=== PATIENT | female | born 1990 | race Caucasian/White ===

== ENCOUNTER 2022-12-16 22:28 | Emergency (ER) | payer BC, SELFPAY ==
[2022-12-16 22:29] VITALS: BP 133/85; PULSE 87; RESP 16; TEMP 36.4; O2SAT 100; BMI 21.0
--- NOTE | 2022-12-16 22:34 | ECG_ITS ---
Test Reason : Panic attack Blood Pressure : / mmHG Vent. Rate : 081 BPM Atrial Rate : 081 BPM P-R Int : 168 ms QRS Dur : 076 ms QT Int : 354 ms P-R-T Axes : 042 054 022 degrees QTc Int : 411 ms Normal sinus rhythm Normal ECG No previous ECGs available Referred By: Generic ED Physician Electronically Signed By:Arvin Rodriguez
[2022-12-16 23:24] LABS: Anion Gap 12 (12-20); Blood Urea Nitrogen 15 mg/dL (9-16); Calcium 9.5 mg/dL (8.4-10.2); Carbon Dioxide 26 mmol/L (22-29); Chloride 107 mmol/L (96-108); Creatinine Clr Calc Pharmacy 111.9; Estimated Glomerular Filt Rate > 60; Glucose Random 98 mg/dL (60-115); Potassium 3.7 mmol/L (3.3-5.1); Sodium 141 mmol/L (135-145)
[2022-12-16 23:33] LABS: Troponin-I High Sensitivity < 2.7 ng/L (<3.5-17.0)
--- NOTE | 2022-12-17 01:17 | ED.GENADULT ---
HPI - General Adult General Chief complaint: General Medical Stated complaint: panic attack Time Seen by Provider: 12/17/22 01:01 Source: patient, RN notes reviewed and other (Patient's boyfriend) Mode of arrival: ambulatory Limitations: no limitations History of Present Illness HPI narrative: 32-year-old female presents for evaluation of anxiety. Patient reports that when she arrived to the ER she was having ?a panic attack. ? She states that she had some chest tightness Patient reports that she just finished her studies in [employer] science and received her PhD She states that because she is no longer a student her views is expiring unless she gets a job She states that she applied for a job and is waiting up to 10 more days to find out if she got a job or not Patient is concerned that if she does not get the job she may be departed as her visa will The patient has tried ZzzQuil and melatonin without any improvement in her insomnia She denies any medical history Related Data Previous Rx's Medication Instructions Recorded lorazepam 1 mg tablet (Ativan) 1 mg PO BEDTIME PRN insomnia #14 12/17/22 tabs Allergies Allergy/AdvReac Type Severity Reaction Status Date / Time No Known Allergies Allergy Verified 12/17/22 01:29 Review of Systems Cardiovascular: Cardiovascular: Reports chest pain Psychiatric: Psychiatric: Reports anxiety PMFSH Social History Social History Alcohol intake: never Smoked in Last 30 Days: No Use of substances other than those prescribed or required for medical reasons: No Patient : No Physical Exam ED Vital Signs: Vital Signs - 24 hr 12/16/22 22:29 Temperature 97.6 F Pulse Rate 87 Respiratory Rate 16 Blood Pressure 133/85 Pulse Oximetry 100 Oxygen Delivery Method Room Air BMI result Body Mass Index 21.0 Const General: healthy appearing, comfortable, no acute distress, alert and awake Nutritional Appearance: well nourished Orientation/consciousness: patient oriented x3 HENMT Head: Yes normocephalic and Yes atraumatic Eyes Eyelids: Yes eyelids normal Conjunctivae: conjunctivae normal Sclerae: sclerae normal Corneas: corneas normal Pupils: Equal, round and reactive pupils present EOM: EOMs intact bilaterally Neck Neck: Yes full ROM Resp Effort & Inspection: normal respiratory effort, able to speak in complete sentences and not labored Cardio Rate: regular rate Rhythm: regular rhythm Neuro General: patient oriented x3 Cranial nerves: Yes Equal, round and reactive pupils present and Yes Bilaterally intact EOM present Cognition (Neuro): normal cognition Extrem Other: Moving all extremities well without any obvious deformities Medical Decision Making Medical Decision Making [facility] Narrative: 32-year-old female who denies any past medical history presents for evaluation of insomnia and anxiety. The patient is in the middle of intimacy stressful. She had a negative cardiac workup including EKG and troponin. Her symptoms are most likely attributed to anxiety. I discussed her previous treatments for insomnia and I offered to prescribe the patient 2 weeks worth of Ativan for bedtime only. The patient's boyfriend reports that he is driving the patient does to have her license, so therefore does not drive at all. Differential Diagnosis Insomnia Anxiety Stress Depression Lab Data [facility] Lab Attestation statement: I reviewed the patient's lab results. (Electrolytes within normal limits. Troponin undetectable) 12/16/22 23:06 Labs: Lab Results 12/16/22 12/16/22 Range/Units 23:06 23:06 Sodium 141 (135-145) mmol/L Potassium 3.7 (3.3-5.1) mmol/L Chloride 107 (96-108) mmol/L Carbon Dioxide 26 (22-29) mmol/L Anion Gap 12 (12-20) BUN 15 (9-16) mg/dL Creatinine 0.66 (0.5-1.4) mg/dL Estim Creat Clear Calc 111.9 Estimated GFR > 60 Random Glucose 98 (60-115) mg/dL Calcium 9.5 (8.4-10.2) mg/dL Troponin I High Sens < 2.7 (<3.5-17.0) ng/L Independent Interpretation I performed an independent interpretation of an: EKG Interpretation: Sinus rhythm with a ventricular rate of 81 beats per minute. No ectopy or ischemic changes Discharge Plan Discharge Clinical Impression: Insomnia, Anxiety Patient Disposition: Home, Self-Care Instructions: Insomnia (ED) Additional Instructions: Take Ativan 1 mg each night approximately half an hour before bedtime. This may make you somewhat sleepy, did not mix with alcohol Do not drive after taking this Follow-up with your primary doctor and your therapist Return for new or worsening symptoms Prescriptions: New lorazepam [Ativan] 1 mg tablet 1 mg PO BEDTIME PRN (Reason: insomnia) Qty: 14 0RF
== END 2022-12-17 01:52 | disposition home or self-care (01) ==
PROVIDERS: Emergency Provider Emergency Medicine
DX: G47.00 Insomnia, unspecified (principal); F41.9 Anxiety disorder, unspecified
CPT/HCPCS: 36415; 80048; 84484; 93005; 99283; 99284

== ENCOUNTER → 2022-12-16 22:34 | Outpatient (BNV) | payer BC, SELFPAY | PROVIDERS: Emergency Provider Emergency Medicine; Visit Provider Internal Medicine Cardiovascular Disease | DX: R07.9 Chest pain, unspecified (principal) | CPT/HCPCS: 93010 ==